=== PATIENT | male | born 1995 | race Asian ===

== ENCOUNTER 2017-11-30 17:57 | Emergency (ER) | payer OTHER ==
[~2017-11-30] VITALS: Ht 165.1 cm; Wt 87.5 kg
[2017-11-30 18:03] VITALS: BP 140/72
[2017-11-30 18:49] VITALS: BP 140/72
== END 2017-11-30 18:49 | disposition home or self-care (01) ==
LOC: MED 17:57
DX: J32.9 Chronic sinusitis, unspecified (principal)
CPT/HCPCS: 99283

== ENCOUNTER 2018-07-03 10:22 | Emergency (ER) | payer OTHER ==
[~2018-07-03] VITALS: Ht 172.7 cm; Wt 76.0 kg
[2018-07-03 10:34] VITALS: BP 91/48
[2018-07-03 11:50] LABS: BASOPHILS % (AUTO) 0.2 % (0.0-2.0); EOSINOPHILS % (AUTO) 0.3 % (0.0-4.0); HEMOGLOBIN 17.8 g/dL (12.0-18.0); LYMPHOCYTES # (AUTO) 0.7 K/uL (2.0-11.5); LYMPHOCYTES % (AUTO) 7.7 % (20.5-51.1); MEAN CORPUSCULAR HEMOGLOBIN 27 pg (27-31); MEAN CORPUSCULAR HGB CONC 33 g/dL (33-37); MEAN CORPUSCULAR VOLUME 82.6 fL (80-94); MONOCYTES % (AUTO) 11.1 % (1.7-9.3); NEUTROPHILS # (AUTO) 7.1 K/uL (1.8-7.7); NEUTROPHILS % (AUTO) 80.7 % (42.2-75.2); PLATELET COUNT (AUTO) 342 K/uL (140-450); RED BLOOD CELL COUNT(AUTO) 6.54 MIL/uL (4.20-6.10); WHITE BLOOD COUNT (AUTO) 8.8 K/uL (4.8-10.8)
[2018-07-03 12:06] LABS: ALBUMIN 4.2 g/dL (3.4-5.0); ANION GAP 15.8 (8-16); CARBON DIOXIDE 25.1 mmol/L (21-32); POTASSIUM 3.9 mmol/L (3.5-5.1); TOTAL BILIRUBIN 0.8 mg/dL (0.0-1.0)
[2018-07-03] MEDS: NACL 0.9% 1,000 ML IV SCH (12:21)
[2018-07-03] MEDS: ONDANSETRON 4 MG/2 ML VIAL IVP ONE (12:21)
[2018-07-03] MEDS: FAMOTIDINE 20 MG/2 ML VIAL IVP ONE (12:22)
[2018-07-03] MEDS: KETOROLAC 30 MG/ML VIAL IVP ONE (12:22)
[2018-07-03] MEDS: METOCLOPRAMIDE 10 MG/2 ML INJ VIAL IVP ONE (12:23)
[2018-07-03] MEDS: MORPHINE SULFATE 4 MG/ML SYR IVP ONE (12:24)
[2018-07-03] MEDS: GLYCOPYRROLATE 0.2 MG/ML VIAL IV ONE (12:24)
[2018-07-03 13:17] LABS: APPEARANCE,URINE CLEAR (CLEAR); BILIRUBIN,URINE NEGATIVE (NEGATIVE); BLOOD, URINE NEGATIVE (NEGATIVE); COLOR,URINE YELLOW (YELLOW); LEUKOCYTE ESTERASE ,URINE NEGATIVE (NEGATIVE); NITRITE, URINE NEGATIVE (NEGATIVE); UGLUCOSE NEGATIVE (NEGATIVE)
[2018-07-03] MEDS: NACL 0.9% 1,000 ML IV ONE (13:23)
[2018-07-03 13:32] LABS: WBC,URINE 0-5 (RARE) /HPF (0-5)
[2018-07-03 13:33] LABS: RBC,URINE 0-5 (RARE) /HPF (0-5)
[2018-07-03 14:45] VITALS: BP 117/72
== END 2018-07-03 14:45 | disposition home or self-care (01) ==
LOC: MED 10:22
DX: A09 Infectious gastroenteritis and colitis, unspecified (principal)
CPT/HCPCS: 36415; 74176; 76705; 80053; 81001; 82150; 82977; 83690; 85025; 96361; 96374; 96375; 99284; J1885; J2270; J2405; J2765; J3490; J7030; Q0092

== ENCOUNTER 2019-08-13 15:39 | Emergency (ER) | payer OTHER ==
[~2019-08-13] VITALS: Ht 170.2 cm; Wt 72.1 kg
[2019-08-13 15:43] VITALS: BP 131/71
--- NOTE | 2019-08-13 15:48 | NUR ---
AMB TO BED 05
--- NOTE | 2019-08-13 15:55 | NUR ---
24 Y/O M C/O COUGH X 1 WEEK. PT DENIES N/V/F. PT HAS DIARRHEA X D DAYS, LAST EPISODE THIS MORNING. PT LUNG SOUNDS CLEAR THROUGHOUT. PT STATES HE FEELS WEEK WITH LOW ENERGY. PT TOOK DAYQUIL AT HOME FOR SYMPTOMS. PT VSS, POSITIONED FOR COMFORT, SIDE RAIL X1 IN PLACE. FRIEND AT BEDSIDE. BEAU
--- NOTE | 2019-08-13 15:57 | NUR ---
YUDY AVALOS AT BEDSIDE EXAMINIG PATIENT.
--- NOTE | 2019-08-13 16:09 | NUR ---
ELEVATOR SERVICE TECHNICIAN AT BEDSIDE PERFORMING ORDERED SCAN.
[2019-08-13 16:36] VITALS: BP 125/70
--- NOTE | 2019-08-13 16:36 | NUR ---
Patient discharged with v/s stable. Written and verbal after care instructions given and explained. Patient alert, oriented and verbalized understanding of instructions. Ambulatory with steady gait. All questions addressed prior to discharge. ID band removed. Patient advised to follow up with PMD. Rx of JORGE BAKER given. Patient educated on indication of medication including possible reaction and side effects. Opportunity to ask questions provided and answered.
== END 2019-08-13 16:36 | disposition home or self-care (01) ==
LOC: MED 15:39
DX: R05 Cough (principal); J02.9 Acute pharyngitis, unspecified; R42 Dizziness and giddiness
CPT/HCPCS: 71045; 99283; Q0092

== ENCOUNTER 2019-08-22 19:37 | Emergency (ER) | payer OTHER ==
[~2019-08-22] VITALS: Ht 167.6 cm; Wt 88.0 kg
[2019-08-22 19:40] VITALS: BP 132/76
--- NOTE | 2019-08-22 19:46 | NUR ---
PT AMBULATED TO THE LOBBY TO A/W BED, VSS
--- NOTE | 2019-08-22 19:50 | NUR ---
PT CAME INTO ER C/O COUGH X 3 WEEKS WITH GREENISH SPUTUM IN THE AM. LUNGS CLEAR THROUGHOUT. SPO2 97% ON RA. NO SOB OR USE OF ACCESSORY MUSCLES OBSERVED. PT ALERT AND ABLE TO ANSWER QUESTIONS APPROPRIATELY. ER MD MADE AWARE OF STATUS, SAFETY MEASURES IN PLACE.
--- NOTE | 2019-08-22 20:03 | NUR ---
PT TAKEN TO BED 2
--- NOTE | 2019-08-22 21:30 | NUR ---
Patient discharged with v/s stable. Written and verbal after care instructions given and explained. Patient alert, oriented and verbalized understanding of instructions. Ambulatory with steady gait. All questions addressed prior to discharge. ID band removed. Patient advised to follow up with PMD. Rx of CODEINE, VENTOLIN, AND FLONASES WAS given. Patient educated on indication of medication including possible reaction and side effects. Opportunity to ask questions provided and answered. PT PAIN DECREASED TO 0/10 PRIOR TO D/C.
[2019-08-22 21:32] VITALS: BP 132/76
== END 2019-08-22 21:30 | disposition home or self-care (01) ==
LOC: MED 19:37
DX: J20.9 Acute bronchitis, unspecified (principal)
CPT/HCPCS: 71046; 99283

== ENCOUNTER 2020-08-31 08:02 | Emergency (ER) | payer OTHER ==
[~2020-08-31] VITALS: Ht 170.2 cm; Wt 89.4 kg
[2020-08-31 08:07] VITALS: BP 130/85
--- NOTE | 2020-08-31 08:10 | NUR ---
Pt ambulated to ER bed 2.
[2020-08-31] MEDS ORDERED: ONDA4TAB PO (08:27)
[2020-08-31] MEDS ORDERED: MECL-303 PO (08:28)
[2020-08-31 09:30] VITALS: BP 130/85
--- NOTE | 2020-08-31 09:30 | NUR ---
Patient discharged with v/s stable. Written and verbal after care instructions given and explained. Patient alert, oriented and verbalized understanding of instructions. Ambulatory with steady gait. All questions addressed prior to discharge. ID band removed. Patient advised to follow up with PMD. Rx of Meclizine, Zofran given. Patient educated on indication of medication including possible reaction and side effects. Opportunity to ask questions provided and answered.
--- NOTE | 2020-08-31 09:30 | NUR ---
Patient assessed, treated, and discharged with v/s stable by ERMD. Written and verbal after care instructions about vertigo given and explained. Patient alert, oriented and verbalized understanding of instructions. Ambulatory with steady gait. All questions addressed prior to discharge. ID band removed. Patient advised to follow up with PMD. Rx of meclizine and ondasetron given. Patient educated on indication of medication including possible reaction and side effects. Opportunity to ask questions provided and answered.
== END 2020-08-31 09:30 | disposition home or self-care (01) ==
LOC: MED 08:02
DX: R42 Dizziness and giddiness (principal)
CPT/HCPCS: 99283